=== PATIENT | male | born 1960 | race Two or more races ===

== ENCOUNTER 2024-05-10 00:13 | Emergency (ER) | payer SELFPAY ==
[~2024-05-10] VITALS: Ht 175.3 cm; Wt 77.2 kg
[2024-05-10 00:42] VITALS: TEMP 96.4
[2024-05-10 00:45] VITALS: PULSE 70; RESP 17; O2SAT 95
[2024-05-10] MEDS: cefTRIAXone 1GM/50ML D5W 50 ML IV ONE (01:38)
[2024-05-10] MEDS: TETANUS-DIPTH-ACEL PERTUSSIS 0.5ML SYR Tdap IM ONE (01:43)
[2024-05-10] MEDS: HYDROcodone-ACET 5/325MG TAB PO ONE (01:44)
[2024-05-10] MEDS ORDERED: CEPH250C PO (03:39)
[2024-05-10] MEDS: BACITRACIN TOP OINT 1 UD PKG TOP ONE (03:47)
[2024-05-10 03:55] VITALS: BP 104/69; PULSE 85; RESP 18; O2SAT 95
== END 2024-05-10 04:02 | disposition home or self-care (01) ==
LOC: ER 00:13 → EDBD 00:13 → ER 04:00
DX: S81.811A Laceration without foreign body, right lower leg, initial encounter (principal); I10 Essential (primary) hypertension; F17.210 Nicotine dependence, cigarettes, uncomplicated; F12.10 Cannabis abuse, uncomplicated; F15.10 Other stimulant abuse, uncomplicated; Z23 Encounter for immunization; W18.09XA Striking against other object with subsequent fall, initial encounter; Y93.89 Activity, other specified; Y92.89 Other specified places as the place of occurrence of the external cause; Y99.8 Other external cause status
CPT/HCPCS: 12001; 73590; 90471; 90715; 96365; 99284; J0696